=== PATIENT | female | born 2000 | race Two or more races ===

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

== ENCOUNTER 2020-06-18 13:12 | Emergency (ER) | payer BC, OTHER ==
[2020-06-18 13:39] LABS: Bilirubin Small (Negative); Blood, Urine Large (Negative); Clarity Cloudy (Clear); Glucose, Urine (Dipstick) Negative (Negative); Ketone, Urine Trace mg/dL (Negative); Leukocyte Small (Negative); Nitrite Positive (Negative); Protein, Urine (Dipstick) 100 mg/dL (Neg-Trace); Specific Gravity, Urine 1.025 (1.005-1.030); pH, Urine 5.5 (5.0-9.0)
[2020-06-18 13:40] LABS: Pregnancy Test - Urine (BHCG) Negative (Negative)
[2020-06-18 13:41] LABS: Pregu Control Background? CLEAR/WHITE (CLR/WHITE); Pregu Control Bar Appear? YES (CONTROL BAR); Specific Gravity 1.025 (1.002-1.036)
[2020-06-18 13:48] LABS: Bacteria/HPF 2+ HPF (None Seen); RBC/HPF Greater than 50 HPF (0-3); WBC/HPF Greater Than 50 HPF (0-3)
--- NOTE | 2020-06-18 14:40 | CT ---
CT ABDOMEN AND PELVIS WITHOUT CONTRAST: History: Right sided abdominal pain, nausea, vomiting, fever, hematuria. FINDINGS: Lack of oral and IV contrast reduces the sensitivity of the exam, particularly for evaluation of nuria d organs and bowel. Tiny lung nodules in the lung bases are again seen. No free air or free fluid is identified in the ab domen or pelvis. No calcified gallstones are seen. There is a 2 mm calculus in the right ureter at th e L4 level. Mild dilatation of the right ureter is seen. No calculi seen in the kidneys, left ureter, or urinary bladder. The uterus and urethra are present. The small bowel is not abnormally dilated. T here is minimal diverticulosis, particularly in the descending colon, close to the splenic flexure. IMPRESSION: 2 mm right ureteral calculus. POS: [facility]
[2020-06-18 14:47] LABS: Band 4 % (5-11); Hemoglobin 11.3 g/dL (12.0-16.0); Lymphocytes 19 % (21-51); MDiff Complete? YES; Mean Corpuscular HGB CONC 30.5 g/dL (32.0-36.0); Mean Corpuscular Hemoglobin 25.4 pg (27.0-31.0); Mean Corpuscular Volume 83.4 fL (78.0-98.0); Mean Platelet Volume 8.2 fL (7.4-10.4); Monocytes 1 % (0-10); Neutrophil 74 % (42-75); Platelet Count 253 thou/uL (130-400); Platelet Morphology Comment Appears Adequate; RBC Distribution Width 13.5 % (11.5-14.5); Reactive Lymphocytes 2 % (0-10); Red Blood Cell (RBC) Count 4.47 mill/uL (4.20-5.40); White Blood Cell (WBC) Count 13.8 thou/uL (4.8-10.8)
[2020-06-18 14:48] LABS: ALT (SGPT) 17 U/L (8-55); AST (SGOT) 14 U/L (5-34); Albumin 4.1 g/dL (3.5-5.0); Alkaline Phosphatase 81 U/L (40-110); Anion Gap 16 mmol/L (10-20); BUN (Urea Nitrogen) 13 mg/dL (7.0-18.7); Bilirubin, Total 0.5 mg/dL (0.2-1.2); Calc. Creatinine Clearance 0 mL/min (70-130); Calcium 9.3 mg/dL (7.8-10.44); Carbon Dioxide 24 mmol/L (22-29); Chloride 103 mmol/L (98-107); Globulin 3.8 g/dL (2.4-3.5); Glucose 107 mg/dL (70-105); Potassium 3.4 mmol/L (3.5-5.1); Protein, Total 7.9 g/dL (6.0-8.3); Sodium 140 mmol/L (136-145)
[2020-06-18] MEDS ORDERED: Potassium Chloride 10 MEQ/100 ML PREMIX BAG ONE (15:10)
[2020-06-18] MEDS ORDERED: Sodium Chloride 0.9% 1,000 ML ONE (15:55)
[2020-06-18] MEDS ORDERED: Levofloxacin 500 mg/D5W 100 ml Premix Bag ONE (15:55)
== END 2020-06-18 18:15 | disposition home or self-care (01) ==
LOC: MADERS 13:12
DX: N13.2 Hydronephrosis with renal and ureteral calculous obstruction (principal); E87.6 Hypokalemia; N39.0 Urinary tract infection, site not specified
CPT/HCPCS: 74176; 80053; 81003; 81015; 81025; 83605; 85025; 87077; 87086; 87186; 96361; 96365; 96366; 96367; J1956; J3480; J7050

== ENCOUNTER 2023-12-24 06:48 | Emergency (ER) | payer BC, OTHER, SELFPAY | END 2023-12-24 07:57 | disposition home or self-care (01) | LOC: MADERS 06:48 | DX: B34.9 Viral infection, unspecified (principal) | CPT/HCPCS: 87804; 99283 ==